=== PATIENT | female | born 1970 | race African-American/Black ===

== ENCOUNTER 2021-01-23 07:07 | Emergency (ER) | payer OTHER ==
[2021-01-23] MEDS ORDERED: ONDANSETRON 4 MG/2 ML VIAL ONE (08:26)
--- NOTE | 2021-01-23 08:26 | RAD REPORT ---
EXAM DESCRIPTION: CT - Head Brain Wo Cont - 01/23/2021 7:58 am CLINICAL HISTORY: TRAUMA Headache, trauma, seizures. COMPARISON: No comparisons TECHNIQUE: All CT scans are performed using dose optimization technique as appropriate and may inclu de automated exposure control or mA/KV adjustment according to patient size. FINDINGS: No intracranial hemorrhage, hydrocephalus or extra-axial fluid collection.Mild generalized brain atrophy.No areas of brain edema or evidence of midline shift. The paranasal sinuses and mastoids are clear. The calvarium is intact. IMPRESSION: No acute intracranial abnormality.
--- NOTE | 2021-01-23 08:45 | EDPHYS ---
Physician Documentation [facility] Name: Judy Hanna Age: 51 yrs Sex: Female : 1970 Arrival Date: 01/23/2021 Time: 07:12 Bed 6 Private MD: Daryn Bond G; Vang, Na ED Physician Gregoria Fonseca HPI: 01/23 07:40 This 51 yrs old Black Female presents to ER via Wheelchair with complaints of Seizure, sp3 Laceration To Forehead. 07:40 51-year-old female with history of cerebral palsy, mental retardation, multiple seizure sp3 history including breakthrough seizures regularly now presents with a ground-level fall with possible LOC in the middle of the night while being postictal patient was using the restroom. Mother who is at the bedside states that she fell forward and hit her face and there was "puddle of blood" on the floor. No other medical history and patient has been compliant with all of her seizure medications which are listed in the nursing record. Per mother, patient is acting at her baseline in terms of responsiveness and activity. All other review of systems limited secondary to patient being nonverbal noncommunicative.. 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 - Social history:: Smoking status: Patient denies any tobacco usage or history of. ROS: 07:42 Unable to obtain ROS due to patient's inability to understand questions, Patient has a sp3 longstanding baseline history of mental retardation and cerebral palsy and is therefore nonverbal.. Exam: 07:42 Constitutional: This is a well developed, well nourished patient who is awake, alert, sp3 and in no acute distress. Chest/axilla: Normal chest wall appearance and motion. Nontender with no deformity. No lesions are appreciated. Cardiovascular: Regular rate and rhythm with a normal S1 and S2. No gallops, murmurs, or rubs. Normal PMI, no JVD. No pulse deficits. Respiratory: Lungs have equal breath sounds bilaterally, clear to auscultation and percussion. No rales, rhonchi or wheezes noted. No increased work of breathing, no retractions or nasal flaring. Abdomen/GI: Soft, non-tender, with normal bowel sounds. No distension or tympany. No guarding or rebound. No evidence of tenderness throughout. 07:42 Head/face: Exam is negative for dickerson signs, deformity, ecchymosis, raccoon eyes, Noted is abrasion(s), hematoma, of the Nasal and forehead hematoma present with surface abrasions. No lacerations were found however once patient is fully cleansed we will reevaluate.. 07:42 Neuro: Exam negative for Neuro exam grossly normal with no focal neuro deficits this patient is moving all extremities. Focal neuro exam is difficult secondary to patient's baseline mental state. Grossly her cranial nerves are intact 2 through 12.. Vital Signs: 07:20 BP 145 / 91; Pulse 99; Resp 18 S; Temp 97.8(TE); Pulse Ox 99% on R/A; aa5 08:15 BP 140 / 72; Pulse 95; Resp 17; Pulse Ox 98% ; bp 08:54 BP 134 / 73; Pulse 95; Resp 17; Temp 98; Pulse Ox 96% ; bp Holton Coma Score: 07:20 Eye Response: spontaneous(4). Verbal Response: incomprehensible(2). Motor Response: bp localizes pain(5). Total: 11. MDM: 07:22 Patient medically screened. sp3 07:44 Data reviewed: vital signs, nurses notes. ED course: 51-year-old female with sp3 breakthrough seizure and facial trauma. Will obtain CT scan of the head and basic laboratory values including Dilantin level. If work-up is negative patient will be discharged home as this sequence of events has occurred many times in the past. About suspecting any infection, CVA, ICH, trauma related injury, PE, or any other critical emergency at this time. Discussed with mother and family who was on the phone who agrees with plan and has no further questions.. 08:40 ED course: After several attempts at blood draw, patient's family decided against any sp3 further attempts at obtaining labs and also refused EKG. Patient was cooperative for the CT scan of the head which demonstrates no significant abnormality, trauma findings, or intracranial hemorrhage. There was a brief incident with security and likely a misunderstanding when the patient sister made her way back to the patient's room. I was able to intervene and discussed entire care plan with both mother and sister who agreed on no repair for the laceration on patient's head which was now clean and visible. Laceration is approximately 3 cm long but superficial in nature and requires no repair. We will place antibiotic ointment on the wound, clean the entire area around removing all blood, and placing a head wrap on patient in a bulky fashion to ensure that it stays in place given the special-needs nature present. Family was okay with the plan and has no further questions. Will discharge patient at this time in the care of the family. They stated to have an appointment follow-up with neurology this Saturday and will return here for any questions or concerns that they may have.. 01/23 07:35 Order name: EKG; Complete Time: 07:35 sp3 01/23 07:35 Order name: Cardiac monitoring; Complete Time: 07:53 sp3 01/23 07:35 Order name: O2 Per Protocol; Complete Time: 07:53 sp3 01/23 07:35 Order name: CT Head Brain wo Cont; Complete Time: 08:36 sp3 01/23 07:35 Order name: O2 Sat Monitoring; Complete Time: 07:53 sp3 Administered Medications: No medications were administered Disposition Summary: 01/23/21 08:44 Discharge Ordered Location: Home sp3 Condition: Stable sp3 Diagnosis - Laceration without foreign body of scalp sp3 - Conversion disorder with seizures or convulsions sp3 Followup: sp3 - With: Private Physician - When: - Reason: Recheck today's complaints Discharge Instructions: - Discharge Summary Sheet sp3 - Laceration Care, Adult sp3 - Seizure, Adult sp3 Forms: - Medication Reconciliation Form sp3 - Thank You Letter sp3 - Antibiotic Education sp3 - Prescription Opioid Use sp3 Signatures: Dispatcher [employer] EDJoyce Mccann, RN RN aa5 Levi Dean RN RN bp Gregoria Fonseca MD MD sp3 Corrections: (The following items were deleted from the chart) 08:11 07:35 EKG - Nurse/Tech ordered. sp3 bp 08:11 07:35 IV Saline Lock ordered. sp3 bp 08:11 07:35 Labs collected and sent ordered. sp3 bp 08:23 07:35 BASIC METABOLIC PANEL+C.LAB.BRZ ordered. EDMS EDMS 08:23 07:35 CBC+H.LAB.BRZ ordered. EDMS EDMS 08:23 07:35 HEPATIC FUNCTION+C.LAB.BRZ ordered. EDMS EDMS 08:23 07:35 MAGNESIUM+C.LAB.BRZ ordered. EDMS EDMS 08:23 07:35 PROTIME (+INR)+COAG.LAB.BRZ ordered. EDMS EDMS 08:23 07:35 TROPONIN (EMERG DEPT USE ONLY)+C.LAB.BRZ ordered. EDMS EDMS 08:23 07:35 PHENYTOIN (DILANTIN)+C.LAB.BRZ ordered. EDMS EDMS
--- NOTE | 2021-01-23 08:45 | ER ---
Nurse's Notes [facility] Name: Judy Hanna Age: 51 yrs Sex: Female : 1970 Arrival Date: 01/23/2021 Time: 07:12 Bed 6 Private MD: Daryn Bond G; Vang, Na Diagnosis: Laceration without foreign body of scalp;Conversion disorder with seizures or convulsions Presentation: 01/23 07:20 Chief complaint: Pt's mother states "she's been having multiple seizures during the aa5 night but this morning she was walking to the restroom and fell while having a seizure and hit her head on the door on the way down". 07:20 Acuity: STEPHANIA 3 aa5 07:20 Coronavirus screen: At this time, the client does not indicate any symptoms associated aa5 with coronavirus-19. Ebola Screen: No symptoms or risks identified at this time. Initial Sepsis Screen: Does the patient meet any 2 criteria? HR > 90 bpm. Does the patient have a suspected source of infection? No. Patient's initial sepsis screen is negative. Risk Assessment: Do you want to hurt yourself or someone else? Unable to obtain. Onset of symptoms was January 23, 2021. 07:20 Method Of Arrival: Wheelchair aa5 Triage Assessment: 07:20 General: Appears in no apparent distress. uncomfortable, obese, unkempt, Behavior is bp cooperative, anxious. Pain: Unable to use pain scale. Does not appear to understand pain scale. EENT: Nares with bleeding noted. Neuro: AT BASELINE MENTATION. Cardiovascular: Rhythm is sinus rhythm. Respiratory: Airway is patent Respiratory effort is even, unlabored. GI: Abdomen is non-distended. : No signs and/or symptoms were reported regarding the genitourinary system. Derm: No deficits noted. Musculoskeletal: No deficits noted. Injury Description: Laceration sustained to nose. 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 - Social history:: Smoking status: Patient denies any tobacco usage or history of. Screenin:20 Abuse screen: Denies threats or abuse. Denies injuries from another. Nutritional bp screening: No deficits noted. Tuberculosis screening: No symptoms or risk factors identified. Fall Risk Fall in past 12 months (25 points). Secondary diagnosis (15 points) seizures, No IV (0 pts). Ambulatory Aid- None/Bed Rest/Nurse Assist (0 pts). Gait- Normal/Bed Rest/Wheelchair (0 pts) Mental Status- Overestimates/Forgets Limitations (15 pts.). Total Olvera Fall Scale indicates High Risk Score (45 or more points). Fall prevention measures have been instituted. Side Rails Up X 2 Placed Close to Nursing Station Family Present and informed to notify staff if the need to leave the bedside As available patient and family educated on Fall Prevention Program and Strategies. Assessment: 07:18 Reassessment: Pt's family in ER [facility] complaining of needing to go back with patient, aa5 notified family members of one-visitor policy at this time. Pt's sister states "you guys need to learn how to deal with pt's with special needs, she won't let anybody else touch her except us". Notified pt's sister that I will bring pt and pt's mother back to ER Room 6 and if there is a problem with transferring pt to bed I will let my master control supervisor know so that maybe we can make an exception about visiting policy at that time. Pt's mother brought back with pt to ER room 6 at this time. . 07:20 Reassessment: Pt assisted into ER stretcher by me and outboard technician, pt able to transfer from [facility] wheelchair to ER stretcher without any complaints. . 07:30 Reassessment: Spoke to family members in [facility] and notified there was no problem aa5 transferring pt to bed and that ER doctor is currently at bedside, family members verbalized understanding and appear calm at this time. . 08:12 Reassessment: FAMILY REFUSING PIV AND LABWORK. bp 08:26 Reassessment: SISTER FORCED HER WAY BACK TO ER, DESPITE STAFF INSTRUCTIONS ABOUT bp VISITATION POLICY, CONFRONTATIONAL WITH STAFF. 08:51 Reassessment: Cleansed wound to head and cleaned dried blood from under nose. Pt ss tolerated well, and stated, "stop" therefore no further cleansing was preformed. Dried blood noted to bilateral nares. Verified with Dr. Fonseca that he does not want any further imaging. States that the CT reached bridge of nose. Vital Signs: 07:20 BP 145 / 91; Pulse 99; Resp 18 S; Temp 97.8(TE); Pulse Ox 99% on R/A; aa5 08:15 BP 140 / 72; Pulse 95; Resp 17; Pulse Ox 98% ; bp 08:54 BP 134 / 73; Pulse 95; Resp 17; Temp 98; Pulse Ox 96% ; bp Chante Coma Score: 07:20 Eye Response: spontaneous(4). Verbal Response: incomprehensible(2). Motor Response: bp localizes pain(5). Total: 11. ED Course: 07:12 Patient arrived in ED. as 07:12 Nathalia Dai MD is Private Physician. as 07:15 Daryn Bond MD is Private Physician. as 07:20 Arm band placed on Patient placed in an exam room, on a stretcher. aa5 07:20 REFUSED BY FAMILY. bp 07:21 Levi Dean, RN is Primary Nurse. bp 07:22 Gregoria Fonseca MD is Attending Physician. sp3 07:22 Seizure precautions initiated. aa5 07:35 Triage completed. aa5 07:59 CT Head Brain wo Cont In Process Unspecified. EDMS 08:52 No provider procedures requiring assistance completed. Wound care: to laceration bp located on scalp was cleaned with soap and water, dressed with Neosporin, Patient tolerated well. Administered Medications: No medications were administered Outcome: 08:44 Discharge ordered by . sp3 08:52 Discharged to home via wheelchair, with family. bp 08:52 Condition: stable 08:52 Discharge instructions given to family, Instructed on discharge instructions, follow up and referral plans. wound care, Demonstrated understanding of instructions, follow-up care, wound care. 09:00 Patient left the ED. bp Signatures: Dispatcher [employer] Josie Muñiz Audri, RN RN aa5 Richa Bowman RN RN ss Levi Dean RN RN bp Gregoria Fonseca MD MD sp3
[2021-01-23 09:19] VITALS: BP 134/73; TEMP 98; O2SAT 96
== END 2021-01-23 09:00 | disposition home or self-care (01) ==
LOC: ER 07:07
DX: S01.01XA Laceration without foreign body of scalp, initial encounter (principal); F44.5 Conversion disorder with seizures or convulsions; W18.39XA Other fall on same level, initial encounter; Y93.89 Activity, other specified; Y92.018 Other place in single-family (private) house as the place of occurrence of the external cause; G80.9 Cerebral palsy, unspecified; F79 Unspecified intellectual disabilities; Z88.1 Allergy status to other antibiotic agents; Z88.3 Allergy status to other anti-infective agents
CPT/HCPCS: 70450; 99284; J2405